=== PATIENT | male | born 1990 | race Caucasian/White ===

== ENCOUNTER 2022-10-06 18:26 | Emergency (ER) | payer MEDICAID ==
[~2022-10-06] VITALS: Ht 175.3 cm; Wt 174.0 kg
[2022-10-06 18:39] VITALS: BP 132/80
[2022-10-06] MEDS ORDERED: CLOT10TR2 MT (22:48)
[2022-10-06] MEDS ORDERED: PENICILLIN G PROCAINE 600000 UNITS/ML SYRINGE IM ONE (23:00)
[2022-10-06] MEDS ORDERED: PENICILLIN G PROCAINE 600000 UNITS/ML SYRINGE IM NR (23:45)
== END 2022-10-07 01:02 | disposition home or self-care (01) ==
LOC: ER 18:26
DX: N48.1 Balanitis (principal)
CPT/HCPCS: 86592; 87591; 96372; 99283; J2510

== ENCOUNTER 2022-10-27 16:19 | Emergency (ER) | payer MEDICAID ==
[~2022-10-27] VITALS: Ht 175.3 cm; Wt 78.0 kg
[~2022-10-27 16:19] MED LIST: CLOT10TR2 MT
[2022-10-27 16:30] VITALS: BP 113/65
[2022-10-27] MEDS ORDERED: KETOROLAC 60MG/2ML VIAL IM ONE (16:45)
[2022-10-27] MEDS ORDERED: IBUP-2028 MT (17:24)
[2022-10-27] MEDS ORDERED: CYCL10TA21 MT (17:24)
[2022-10-27 18:09] LABS: CLARITY URINE CLEAR (CLEAR); COLOR URINE YELLOW (YELLOW); KETONES URINE NEGATIVE (NEGATIVE); LEUKOCYTE ESTERASE URINE NEGATIVE (NEGATIVE); NITRITE URINE NEGATIVE (NEGATIVE); OCCULT BLOOD URINE NEGATIVE (NEGATIVE); PH URINE 7.5 (4.5-8.0); PROTEIN URINE TRACE (NEGATIVE); SPECIFIC GRAVITY URINE 1.026 (1.005-1.030)
== END 2022-10-27 18:45 | disposition home or self-care (01) ==
LOC: ER 16:19
DX: M54.9 Dorsalgia, unspecified (principal)
CPT/HCPCS: 81003; 96372; 99283; J1885